=== PATIENT | male | born 1975 ===

== ENCOUNTER 2018-05-02 16:44 | Emergency (ER) | payer OTHER ==
[~2018-05-02] VITALS: Ht 182.9 cm; Wt 90.7 kg
[~2018-05-02 16:44] MED LIST: Augmentin 875-1 EACH PO; BUPR1 PO; CHLO10 PO; CLON.1 PO; HYDACE5 PO; IBUP800 PO; LORA1 PO; METH10; METPRE4DP PO; OMEP40CA12 PO; OXYACE10 PO; OXYACE5T PO; OXYC30 PO; OXYCODONE; PROM25 PO; RXLORA1 PO; RXOXYACE PO; RXPROM25 PO; TOBR.3OPSO OP
[2018-05-02] MEDS ORDERED: Veetids 500500 MG PO (17:32)
[2018-05-02] MEDS ORDERED: PRED20 PO (17:32)
== END 2018-05-02 17:38 | disposition home or self-care (01) ==
LOC: ER 16:44
DX: L03.116 Cellulitis of left lower limb (principal); F17.200 Nicotine dependence, unspecified, uncomplicated
CPT/HCPCS: 96372; 99282; J1885